=== PATIENT | male | born 1950 | race Caucasian/White ===

== ENCOUNTER 2017-10-29 12:19 | Emergency (ER) | payer BC ==
[~2017-10-29] VITALS: Ht 182.9 cm; Wt 81.6 kg
[~2017-10-29 12:19] MED LIST: AUGMENTIN 875-1 EAC1 ORAL; CIPROFLOXACIN500 M2 ORAL; FLOMAX0.4 MG ORAL
[2017-10-29] MEDS ORDERED: Lidocaine HCl 2% Jelly 5ml Tube TOPIC ONE ×3 (13:14→13:45)
--- NOTE | 2017-10-29 13:15 | Emergency Room Report ---
History of Present Illness General Chief Complaint: Male Urogenital Problems Source: Patient Present Illness HPI 67-year-old male history of BPH which has required urinary catheters in the past , presenting with urinary retention since last night. Patient states that for the last 7 hours unable to urinate, however had some trickling this morning. Complaining of suprapubic pressure. No fever chills nausea vomiting or any other abdominal pain Allergies: Coded Allergies: No Known Allergies (Unverified , 05/12/13) Patient History Past Medical History: see triage record Past Surgical History: none Pertinent Family History: none Reviewed Nursing Documentation: PMH: Agreed; PSxH: Agreed Nursing Documentation-PMH Past Medical History: No History, Except For Review of Systems All Other Systems: negative except mentioned in HPI Physical Exam Vital Signs Date Time Temp Pulse Resp B/P (MAP) Pulse Ox O2 Delivery O2 Flow Rate FiO2 10/29/17 12:24 97.8 97 16 177/97 95 Room Air 97.9 Sp02 EP Interpretation: reviewed, normal General Appearance: alert, GCS 15, non-toxic, moderate distress Head: normocephalic, atraumatic Eyes: bilateral eye normal inspection, bilateral eye PERRL, bilateral eye EOMI ENT: normal ENT inspection, normal pharynx, normal voice, moist mucus membranes Neck: normal inspection, full range of motion, supple Respiratory: normal inspection, lungs clear, normal breath sounds, no respiratory distress, no retraction, no wheezing, speaking full sentences, chest symmetrical Cardiovascular #1: normal inspection, regular rate, rhythm, no edema, normal capillary refill Cardiovascular #2: 2+ radial (R), 2+ radial (L) Gastrointestinal: soft, non-distended, no guarding, other - +suprapubic tenderness, some distension, no guarding Genitourinary: no CVA tenderness Musculoskeletal: normal inspection, back normal, normal range of motion, non- tender Neurologic: normal inspection, alert, oriented x3, responsive, motor strength/ tone normal, sensory intact, normal gait, speech normal Psychiatric: normal inspection, judgement/insight normal, memory normal Skin: normal inspection, normal color, no rash, warm/dry, well hydrated, normal turgor Medical Decision Making Diagnostic Impression: Primary Impression: Urinary retention ER Course 67-year-old male with urinary retention DDX: Urinary retention secondary to BPH, rule out UTI, rule out acute renal failure Plan: Obtain labs, ua, Villasenor placement ER course: Attempted to place Vill[place]or 3 times, last used a 14 [place] coud, and 12F, however unsuccessful Bedside ultrasound performed by me showing distended bladder Discussed with urology Dr Wills who will be coming to see patient Signed out to Dr Stoner 67 yo m with urinary retention tried multiple times to put n cath urology coming to see patient Please note that this Emergency Department Report was dictated using [employer] user interface developer technology software, occasionally this can lead to erroneous entry secondary to interpretation by the dictation equipment Last Vital Signs Date Time Temp Pulse Resp B/P (MAP) Pulse Ox O2 Delivery O2 Flow Rate FiO2 10/29/17 12:24 97.8 97 16 177/97 95 Room Air 97.9 Referrals: NON PHYSICIAN (PCP) Siva Kerr M.D. Oct 29, 2017 13:15
[2017-10-29 13:26] VITALS: BP 177/97
[2017-10-29 13:27] LABS: BASOPHILS % (AUTO) 0.5 % (0.0-2.0); EOSINOPHILS % (AUTO) 0.1 % (0.0-3.0); HEMATOCRIT 46.5 % (42.0-52.0); HEMOGLOBIN 15.5 G/DL (14.2-18.0); LYMPHOCYTES % (AUTO) 10.1 % (20.0-45.0); MEAN CORPUSCULAR VOLUME 81 FL (80-99); NEUTROPHILS % (AUTO) 84.3 % (45.0-75.0); PLATELET COUNT 171 K/UL (150-450); RED BLOOD COUNT 5.78 M/UL (4.70-6.10); RED CELL DISTRIBUTION WIDTH 11.7 % (11.6-14.8); WHITE BLOOD COUNT 10.6 K/UL (4.8-10.8)
[2017-10-29 13:31] LABS: ANION GAP 12 mmol/L (5-15); BLOOD UREA NITROGEN 18 mg/dL (7-18); CALCIUM 8.8 MG/DL (8.5-10.1); CARBON DIOXIDE 24 MMOL/L (21-32); CHLORIDE 102 MMOL/L (98-107); POTASSIUM 3.8 MMOL/L (3.5-5.1); SODIUM 137 MMOL/L (136-145)
[2017-10-29 13:36] LABS: ALANINE AMINOTRANSFERASE 32 U/L (12-78); ALKALINE PHOSPHATASE 76 U/L (46-116); ASPARTATE AMINO TRANSFERASE 19 U/L (15-37); BILIRUBIN,TOTAL 0.9 MG/DL (0.2-1.0)
[2017-10-29] MEDS ORDERED: Morphine Sulfate 4mg/ml Inj IVP ONE ×2 (14:00→15:30)
[2017-10-29 14:27] VITALS: BP 166/81
[2017-10-29 16:42] LABS: APPEARANCE,URINE CLEAR; BILIRUBIN, URINE NEGATIVE (NEGATIVE); COLOR,URINE PALE YELLOW; GLUCOSE, URINE (UA) 1+ (NEGATIVE); KETONES,URINE 2+ (NEGATIVE); LEUKOCYTE ESTERASE ,URINE NEGATIVE (NEGATIVE); NITRITE,URINE NEGATIVE (NEGATIVE); PH,URINE 5 (4.5-8.0); PROTEIN,URINE NEGATIVE (NEGATIVE); UROBILINOGEN,URINE NORMAL MG/DL (0.0-1.0)
--- NOTE | 2017-10-29 16:48 | Consultation ---
History of Present Illness General Date patient seen: Oct 29, 2017 Time patient seen: 16:43 Chief Complaint: Male Urogenital Problems Referring physician: Cirilo Reason for Consultation: urinary retention, difficult catheterization Present Illness HPI 67 yo male with known BPH, managed at [facility], who has been unable to void since early this AM. patient's pain is controlled, but spasms are bothersome. He has had catheters placed before, but last one was over 2 years ago. Here in ER patient has undergone 4 catheterization attempts with no success. Allergies: Coded Allergies: No Known Allergies (Unverified , 05/12/13) Medication History Scheduled Tamsulosin HCl (Flomax), 0.4 MG ORAL DAILY Patient History History Provided By: Patient Healthcare decision maker Resuscitation status Advanced Directive on File Past Medical/Surgical History Past Medical/Surgical History: (1) BPH (benign prostatic hyperplasia) Review of Systems Gastrointestinal: Reports: abdominal pain Genitourinary: Reports: dysuria All Other Systems: negative except mentioned in HPI Physical Exam General Appearance: no apparent distress HEENT: atraumatic Neck: supple Respiratory/Chest: lungs clear Cardiovascular/Chest: normal rate Abdomen: soft, distended Genitourinary/Rectal: normal genital exam Extremities: non-tender Skin Exam: warm/dry Neurologic: alert, oriented x 3 Last 24 Hour Vital Signs Date Time Temp Pulse Resp B/P (MAP) Pulse Ox O2 Delivery O2 Flow Rate FiO2 10/29/17 15:55 98.2 10/29/17 15:26 98.2 10/29/17 14:27 98.2 16 166/81 95 Room Air 98.2 10/29/17 13:59 97.9 10/29/17 13:26 97.9 16 177/97 95 Room Air 97.9 10/29/17 12:24 97.8 97 16 177/97 95 Room Air 97.9 Laboratory Tests Test 10/29/17 13:07 10/29/17 16:23 White Blood Count 10.6 K/UL (4.8-10.8) Red Blood Count 5.78 M/UL (4.70-6.10) Hemoglobin 15.5 G/DL (14.2-18.0) Hematocrit 46.5 % (42.0-52.0) Mean Corpuscular Volume 81 FL (80-99) Mean Corpuscular Hemoglobin 26.8 PG (27.0-31.0) L Mean Corpuscular Hemoglobin Concent 33.3 G/DL (32.0-36.0) Red Cell Distribution Width 11.7 % (11.6-14.8) Platelet Count 171 K/UL (150-450) Mean Platelet Volume 9.4 FL (6.5-10.1) Neutrophils (%) (Auto) 84.3 % (45.0-75.0) H Lymphocytes (%) (Auto) 10.1 % (20.0-45.0) L Monocytes (%) (Auto) 5.0 % (1.0-10.0) Eosinophils (%) (Auto) 0.1 % (0.0-3.0) Basophils (%) (Auto) 0.5 % (0.0-2.0) Sodium Level 137 MMOL/L (136-145) Potassium Level 3.8 MMOL/L (3.5-5.1) Chloride Level 102 MMOL/L (98-107) Carbon Dioxide Level 24 MMOL/L (21-32) Anion Gap 12 mmol/L (5-15) Blood Urea Nitrogen 18 mg/dL (7-18) Creatinine 1.0 MG/DL (0.55-1.30) Estimat Glomerular Filtration Rate > 60 mL/min (>60) Glucose Level 228 MG/DL (74-106) H Calcium Level 8.8 MG/DL (8.5-10.1) Total Bilirubin 0.9 MG/DL (0.2-1.0) Aspartate Amino Transf (AST/SGOT) 19 U/L (15-37) Alanine Aminotransferase (ALT/SGPT) 32 U/L (12-78) Alkaline Phosphatase 76 U/L (46-116) Total Protein 8.0 G/DL (6.4-8.2) Albumin 4.0 G/DL (3.4-5.0) Globulin 4.0 g/dL Albumin/Globulin Ratio 1.0 (1.0-2.7) Urine Color Pending Urine Appearance Pending Urine pH Pending Urine Specific [place] Pending Urine Protein Pending Urine Glucose (UA) Pending Urine Ketones Pending Urine Occult Blood Pending Urine Nitrite Pending Urine Bilirubin Pending Urine Urobilinogen Pending Urine Leukocyte Esterase Pending Height (Feet): 6 Weight (Pounds): 180 Objective Narrative Procedure: Under sterile conditions, 16 syriac coude catheter passed with little resistance. Immediate evacuation of over 400+ urine. patient tolerated well. Assessment/Plan Status: stable Assessment/Plan 67 yo male with urinary retention likely from BPH. Patient has urology follow up at [facility]. Is on combination therapy with flomax/finasteride. This will be the third catheter he has required in past 4 years. Counseled patient on following up with Dr. Gates at [facility] for voiding trial and further management. Consider TURP in future as he is already on combination medical therapy. Ok to work this week with catheter to leg bag. 1. urine for culture 2. DC home with leg bag 3. F/U [facility] Tuesday AM. Dick Wills M.D. Oct 29, 2017 16:48
[2017-10-29] MEDS ORDERED: KEFLEX500 MG ORAL (16:59)
[2017-10-29 17:00] VITALS: BP 125/76
== END 2017-10-29 17:00 | disposition home or self-care (01) ==
LOC: EMR 12:44
DX: N40.1 Benign prostatic hyperplasia with lower urinary tract symptoms (principal); R33.8 Other retention of urine
CPT/HCPCS: 36415; 80053; 81003; 85025; 96374; 96375; 99284; J2270